=== PATIENT | female | born 1940 | race Caucasian/White ===

== ENCOUNTER → 2016-10-23 | Outpatient (CLI) | payer MEDICARE, BC | LOC: RAD 14:44 | PROVIDERS: ATTEND Family Medicine | DX: M25.562 Pain in left knee (principal); M25.462 Effusion, left knee ==

== ENCOUNTER → 2018-01-31 | Outpatient (CLI) | payer MEDICARE, BC ==
[2018-01-31 12:19] LABS: ABSOLUTE EOSINOPHILS # (AUTO) 0.2 10^3/uL (0.0-0.6); ABSOLUTE MONOCYTES (AUTO) 0.6 10^3/uL (0.1-1.4); ABSOLUTE NEUT (AUTO) 4.4 10^3/uL (1.7-8.2); BASOPHILS % (AUTO) 0.7 % (0-2); EOSINOPHILS % (AUTO) 2.8 % (0-6); HEMATOCRIT 39.6 % (36.0-47.0); HEMOGLOBIN 13.4 g/dL (12.0-15.5); LYMPHOCYTES % (AUTO) 15.6 % (13-45); MEAN CORPUSCULAR HEMOGLOBIN 32.4 pg (27.0-33.4); MEAN CORPUSCULAR HGB CONC 33.8 g/dL (32.0-36.0); MEAN CORPUSCULAR VOLUME 96 fl (80-97); MONOCYTES % (AUTO) 9.4 % (3-13); PLATELET COUNT 218 10^3/uL (150-450); RED BLOOD COUNT 4.13 10^6/uL (3.72-5.28); RED CELL DISTRIBUTION WIDTH 14.6 % (11.5-14.0); SEGMENTED NEUTROPHILS % (AUTO) 71.5 % (42-78); TOTAL CELLS COUNTED % (AUTO) 100 %; WHITE BLOOD COUNT 6.1 10^3/uL (4.0-10.5)
[2018-01-31 12:49] LABS: ALANINE AMINOTRANSFERASE 25 U/L (9-52); ALBUMIN 4.1 g/dL (3.5-5.0); ALKALINE PHOSPHATASE 69 U/L (38-126); ANION GAP 13 (5-19); ASPARTATE AMINO TRANSFERASE 23 U/L (14-36); BILIRUBIN,DIRECT 0.4 mg/dL (0.0-0.4); BLOOD UREA NITROGEN 30 mg/dL (7-20); CALCIUM 9.6 mg/dL (8.4-10.2); CARBON DIOXIDE 31 mmol/L (22-30); CHLORIDE 102 mmol/L (98-107); GLUCOSE 109 mg/dL (75-110); POTASSIUM 4.9 mmol/L (3.6-5.0); SODIUM 145.6 mmol/L (137-145); TOTAL PROTEIN 6.9 g/dL (6.3-8.2)
== END ==
LOC: OD 11:24
PROVIDERS: ATTEND Internal Medicine
DX: K58.0 Irritable bowel syndrome with diarrhea (principal); R53.83 Other fatigue; M19.90 Unspecified osteoarthritis, unspecified site
CPT/HCPCS: 36415; 80053; 84443; 85025

== ENCOUNTER → 2018-09-13 | Outpatient (CLI) | payer MEDICARE, BC ==
[2018-09-13 10:48] LABS: ABSOLUTE LYMPHOCYTES (AUTO) 0.4 10^3/uL (0.5-4.7); ABSOLUTE MONOCYTES (AUTO) 0.5 10^3/uL (0.1-1.4); ABSOLUTE NEUT (AUTO) 2.4 10^3/uL (1.7-8.2); BASOPHILS % (AUTO) 0.4 % (0-2); EOSINOPHILS % (AUTO) 0.1 % (0-6); HEMATOCRIT 36.6 % (36.0-47.0); LYMPHOCYTES % (AUTO) 10.8 % (13-45); MEAN CORPUSCULAR HEMOGLOBIN 33.6 pg (27.0-33.4); MEAN CORPUSCULAR HGB CONC 35.3 g/dL (32.0-36.0); MEAN CORPUSCULAR VOLUME 95 fl (80-97); MONOCYTES % (AUTO) 15.2 % (3-13); PLATELET COUNT 110 10^3/uL (150-450); RED BLOOD COUNT 3.86 10^6/uL (3.72-5.28); RED CELL DISTRIBUTION WIDTH 13.9 % (11.5-14.0); SEGMENTED NEUTROPHILS % (AUTO) 73.5 % (42-78); TOTAL CELLS COUNTED % (AUTO) 100 %; WHITE BLOOD COUNT 3.3 10^3/uL (4.0-10.5)
[2018-09-13 11:14] LABS: ALANINE AMINOTRANSFERASE 34 U/L (9-52); ALBUMIN 3.5 g/dL (3.5-5.0); ALKALINE PHOSPHATASE 68 U/L (38-126); ANION GAP 11 (5-19); ASPARTATE AMINO TRANSFERASE 55 U/L (14-36); BILIRUBIN,DIRECT 0.3 mg/dL (0.0-0.4); BILIRUBIN,TOTAL 0.8 mg/dL (0.2-1.3); BLOOD UREA NITROGEN 15 mg/dL (7-20); CALCIUM 9.2 mg/dL (8.4-10.2); CARBON DIOXIDE 31 mmol/L (22-30); CHLORIDE 97 mmol/L (98-107); GLUCOSE 119 mg/dL (75-110); SODIUM 138.6 mmol/L (137-145); TOTAL PROTEIN 6.2 g/dL (6.3-8.2)
== END ==
LOC: OD 10:09
PROVIDERS: ATTEND Internal Medicine
DX: K57.32 Diverticulitis of large intestine without perforation or abscess without bleeding (principal); K57.30 Diverticulosis of large intestine without perforation or abscess without bleeding
CPT/HCPCS: 36415; 80053; 85025

== ENCOUNTER 2018-09-17 13:31 | Inpatient (IN) | payer MEDICARE, BC ==
[2018-09-17] MEDS ORDERED: NORMAL SALINE 1000 ML 1,000 ML IV PRN (14:46)
[2018-09-17 15:37] LABS: HEMATOCRIT 35.2 % (36.0-47.0); HEMOGLOBIN 12.1 g/dL (12.0-15.5); MEAN CORPUSCULAR HEMOGLOBIN 32.5 pg (27.0-33.4); MEAN CORPUSCULAR HGB CONC 34.3 g/dL (32.0-36.0); MEAN CORPUSCULAR VOLUME 95 fl (80-97); PLATELET COUNT 230 10^3/uL (150-450); RED BLOOD COUNT 3.71 10^6/uL (3.72-5.28); RED CELL DISTRIBUTION WIDTH 14.3 % (11.5-14.0); WHITE BLOOD COUNT 8.7 10^3/uL (4.0-10.5)
[2018-09-17 15:44] LABS: INTERNATIONAL RATION (INR) 1.04; PARTIAL THROMBOPLASTIN TIME 37.8 SEC (23.5-35.8); PROTHROMBIN TIME 14.1 SEC (11.4-15.4)
[2018-09-17 15:55] LABS: ALANINE AMINOTRANSFERASE 104 U/L (9-52); ALBUMIN 3.6 g/dL (3.5-5.0); ALKALINE PHOSPHATASE 77 U/L (38-126); ANION GAP 10 (5-19); ASPARTATE AMINO TRANSFERASE 77 U/L (14-36); BILIRUBIN,DIRECT 0.2 mg/dL (0.0-0.4); BILIRUBIN,TOTAL 0.9 mg/dL (0.2-1.3); BLOOD UREA NITROGEN 15 mg/dL (7-20); CALCIUM 9.1 mg/dL (8.4-10.2); CARBON DIOXIDE 28 mmol/L (22-30); CHLORIDE 98 mmol/L (98-107); GLUCOSE 108 mg/dL (75-110); POTASSIUM 3.6 mmol/L (3.6-5.0); SODIUM 136.2 mmol/L (137-145); TOTAL PROTEIN 6.1 g/dL (6.3-8.2)
[2018-09-17] MEDS ORDERED: DEXTROSE 40% GEL 15 GM TUBE PO PRN ×2 (16:04)
[2018-09-17] MEDS ORDERED: DEXTROSE 50%-WATER 25 GM/50 ML DISP.SYRIN IV PRN ×2 (16:04)
[2018-09-17] MEDS ORDERED: GLUCAGON,HUMAN RECOMB 1 MG INJ SUBCUT PRN (16:04)
[2018-09-17] MEDS ORDERED: ONDANSETRON 4 MG TAB.RAPDIS PO PRN (16:04)
--- NOTE | 2018-09-17 16:17 | PDOC H&P ---
History of Present Illness Admission Date/PCP: 09/17/18 13:31 JUSTA ALBA MD Patient complains of: Abdominal pain with profound diarrhea unable to keep the clear liquids or antibiotics down History of Present Illness: TOMMY CUI is a 77 year old female Past Medical History Cardiac Medical History: Reports: Hyperlipidema Denies: Coronary Artery Disease, Myocardial Infarction, Hypertension Pulmonary Medical History: Denies: Asthma, Bronchitis, Chronic Obstructive Pulmonary Disease (COPD), Pneumonia, Tuberculosis Neurological Medical History: Denies: Seizures GI Medical History: Denies: Hepatitis, Hiatal Hernia Musculoskeltal Medical History: Reports: Arthritis Hematology: Reports: Anemia - 20-40 YRS AGO Denies: Sickle Cell Disease Past Surgical History Past Surgical History: Reports: Appendectomy, Hysterectomy, Orthopedic Surgery - right knee replacement, Tonsillectomy Denies: Amputation, Mastectomy, Pacemaker Social History Information Source: Patient Lives with: Family Smoking Status: Never Smoker Frequency of Alcohol Use: None Hx Recreational Drug Use: No Hx Prescription Drug Abuse: No Family History Family History: Reviewed & Not Pertinent Parental Family History Reviewed: Yes Children Family History Reviewed: Yes Sibling(s) Family History Reviewed.: Yes Medication/Allergy Home Medications: Esomeprazole Mag Trihydrate [Nexium] 40 mg PO QAM 06/10/13 Trazodone HCl 200 mg PO QHS 09/10/18 Acyclovir [Zovirax 5% Ointment 30 gm] 1 applic TP Q8 MDD FILLED 09/11/18 FOR 14 DAYS 09/17/18 Lactobacillus Acidophilus [Probiotic] 1 each PO DAILY 09/17/18 Metronidazole [Flagyl 500 mg Tablet] 500 mg PO Q6 MDD FILLED 09/13/18 FOR 10 DAYS 09/17/18 Sulfamethoxazole/Trimethoprim [Septra-Ds 800-160 mg Tablet] 1 tab PO Q12 MDD FILLED 09/13/18 FOR 10 DAYS 09/17/18 Valacyclovir HCl [Valtrex 500 Mg Tablet] 500 mg PO QHS 09/17/18 Allergies/Adverse Reactions: No Known Allergies Allergy (Verified 01/09/14 10:46) Review of Systems All systems: as per PMH Physical Exam Vital Signs: Temp Pulse Resp BP Pulse Ox 98.9 F 87 17 133/53 H 96 09/17/18 15:07 09/17/18 15:07 09/17/18 15:07 09/17/18 15:07 09/17/18 15:07 Intake & Output 09/16/18 09/17/18 09/18/18 06:59 06:59 06:59 Weight 56 kg General appearance: PRESENT: severe distress Head exam: PRESENT: atraumatic Eye exam: PRESENT: conjunctival injection Mouth exam: PRESENT: dry mucosa Neck exam: ABSENT: carotid bruit, JVD Respiratory exam: PRESENT: clear to auscultation meng Cardiovascular exam: PRESENT: RRR, +S1, +S2 GI/Abdominal exam: PRESENT: tenderness. ABSENT: guarding Extremities exam: PRESENT: full ROM Musculoskeletal exam: PRESENT: ambulatory Neurological exam: PRESENT: alert, awake Results Laboratory Results: 09/17/18 15:06 09/17/18 15:06 09/17/18 09/17/18 15:06 15:06 WBC 8.7 RBC 3.71 L Hgb 12.1 Hct 35.2 L MCV 95 MCH 32.5 MCHC 34.3 RDW 14.3 H Plt Count 230 Sodium 136.2 L Potassium 3.6 Chloride 98 Carbon Dioxide 28 Anion Gap 10 BUN 15 Creatinine 0.73 Est GFR ( Amer) > 60 Est GFR (Non-Af Amer) > 60 Glucose 108 Calcium 9.1 Total Bilirubin 0.9 AST 77 H ALT 104 H Alkaline Phosphatase 77 Total Protein 6.1 L Albumin 3.6 Assessment & Plan - Diagnosis (1) Acute abdominal pain Is this a current diagnosis for this admission?: Yes Plan: Will place patient on n.p.o. Surgical consultation. CT of the abdomen and pelvis. IV fluids and pain medication (2) Diarrhea Qualifiers: Diarrhea type: unspecified type Qualified Code(s): R19.7 - Diarrhea, unspecified Is this a current diagnosis for this admission?: Yes Plan: We will place patient on n.p.o. status. Stool cultures (3) Acute diverticulitis Is this a current diagnosis for this admission?: Yes Plan: N.p.o. and IV antibiotics and pain management. (4) Irritable bowel syndrome Is this a current diagnosis for this admission?: Yes Plan: Continue current treatment
[2018-09-17 16:36] LABS: LIPASE 35.4 U/L (23-300)
--- NOTE | 2018-09-17 18:01 | PDOC CONSULTATION ---
Consultation Consult Date: 09/17/18 Consult reason:: abdominal pains History of Present Illness Admission Date/PCP: 09/17/18 13:31 JUSTA ALBA MD Patient complains of: abdominal pains History of Present Illness: TOMMY CUI is a 77 year old female who apparently has a history of irritable bowel syndrome c/o diarrhea with abdominal pains past 1-2 weeks getting worse past 2 days. Admits to having night sweats in past 2 weeks. Has some nausea but no vomiting. Claims she was diagnosed with acute diverticulitis in the past and treated medically. She is going today for CT scan of abd/pelvis Past Medical History Cardiac Medical History: Reports: Hyperlipidema Denies: Coronary Artery Disease, Myocardial Infarction, Hypertension Pulmonary Medical History: Denies: Asthma, Bronchitis, Chronic Obstructive Pulmonary Disease (COPD), Pneumonia, Tuberculosis Neurological Medical History: Denies: Seizures GI Medical History: Denies: Hepatitis, Hiatal Hernia Musculoskeltal Medical History: Reports: Arthritis Hematology: Reports: Anemia - 20-40 YRS AGO Denies: Sickle Cell Disease Past Surgical History Past Surgical History: Reports: Appendectomy, Hysterectomy, Orthopedic Surgery - right knee replacement, Tonsillectomy Denies: Amputation, Mastectomy, Pacemaker Social History Lives with: Family Smoking Status: Never Smoker Frequency of Alcohol Use: None Hx Recreational Drug Use: No Hx Prescription Drug Abuse: No Family History Family History: Reviewed & Not Pertinent Parental Family History Reviewed: Yes Children Family History Reviewed: No Sibling(s) Family History Reviewed.: No Medication/Allergy Home Medications: Esomeprazole Mag Trihydrate [Nexium] 40 mg PO QAM 06/10/13 Trazodone HCl 200 mg PO QHS 09/10/18 Acyclovir [Zovirax 5% Ointment 30 gm] 1 applic TP Q8 MDD FILLED 09/11/18 FOR 14 DAYS 09/17/18 Lactobacillus Acidophilus [Probiotic] 1 each PO DAILY 09/17/18 Metronidazole [Flagyl 500 mg Tablet] 500 mg PO Q6 MDD FILLED 09/13/18 FOR 10 DAYS 09/17/18 Sulfamethoxazole/Trimethoprim [Septra-Ds 800-160 mg Tablet] 1 tab PO Q12 MDD FILLED 09/13/18 FOR 10 DAYS 09/17/18 Valacyclovir HCl [Valtrex 500 Mg Tablet] 500 mg PO QHS 09/17/18 Allergies/Adverse Reactions: No Known Allergies Allergy (Verified 01/09/14 10:46) Review of Systems Constitutional: PRESENT: as per HPI Eyes: PRESENT: other - no visual/hearing changes Cardiovascular: PRESENT: other - no chest pains/cough Genitourinary: PRESENT: other - no dysuria Neurological: PRESENT: other - no seizures Physical Exam Vital Signs: Temp Pulse Resp BP Pulse Ox 98.6 F 83 16 130/66 H 97 09/17/18 16:21 09/17/18 16:21 09/17/18 16:21 09/17/18 16:21 09/17/18 16:21 Intake & Output 09/16/18 09/17/18 09/18/18 06:59 06:59 06:59 Weight 56 kg General appearance: PRESENT: mild distress Head exam: PRESENT: atraumatic Eye exam: PRESENT: conjunctiva pink Mouth exam: PRESENT: moist Neck exam: PRESENT: full ROM Respiratory exam: PRESENT: clear to auscultation meng Cardiovascular exam: PRESENT: RRR Pulses: PRESENT: normal radial pulses Vascular exam: PRESENT: normal capillary refill GI/Abdominal exam: PRESENT: soft, tenderness - both lower quadrants Extremities exam: PRESENT: full ROM Musculoskeletal exam: PRESENT: ambulatory Neurological exam: PRESENT: alert, oriented to person, oriented to place, oriented to time, oriented to situation Psychiatric exam: PRESENT: appropriate affect Skin exam: PRESENT: normal color, warm Results Laboratory Results: 09/17/18 15:06 09/17/18 15:06 09/17/18 09/17/18 09/17/18 15:06 15:06 15:06 WBC 8.7 RBC 3.71 L Hgb 12.1 Hct 35.2 L MCV 95 MCH 32.5 MCHC 34.3 RDW 14.3 H Plt Count 230 Sodium 136.2 L Potassium 3.6 Chloride 98 Carbon Dioxide 28 Anion Gap 10 BUN 15 Creatinine 0.73 Est GFR ( Amer) > 60 Est GFR (Non-Af Amer) > 60 Glucose 108 Calcium 9.1 Total Bilirubin 0.9 AST 77 H ALT 104 H Alkaline Phosphatase 77 Total Protein 6.1 L Albumin 3.6 Amylase 30 Lipase 35.4 Assessment & Plan - Diagnosis (1) Acute abdominal pain Is this a current diagnosis for this admission?: Yes (2) Acute diverticulitis Is this a current diagnosis for this admission?: Yes - Time Time Spent: 30 to 50 Minutes - Inpatient Certification Medical Necessity: Need For IV Fluids, Need for Pain Control, Need for IV Antibiotics, Risk of Complication if Not Cared For in Hospital - Plan Summary Plan Summary: Agree with CT scan abd/pelvis IV antibiotics depending on CT scan findings Bowel rest
[2018-09-17] MEDS: ENOXAPARIN SODIUM INJ 40 MG/0.4 ML DISP.SYRIN SUBCUT SCH (18:29)
[2018-09-17] MEDS: METRONIDAZOLE 500 MG/NS RTU 500 MG/100 ML RTUPB IV SCH (18:29)
[2018-09-17] MEDS: LANSOPRAZOLE 30 MG TAB.RAP.DR PO SCH (18:29)
--- NOTE | 2018-09-17 19:04 | RADIOLOGY REPORT (SQ) ---
EXAM DESCRIPTION: CT ABD/PELVIS WITH IV ORAL COMPLETED DATE/TIME: 09/17/2018 6:27 pm REASON FOR STUDY: acute diverticulitis K57.92 DVTRCLI OF INTEST, PART UNSP, W/O PERF OR ABSCESS W/O COMPARISON: 01/09/2014 TECHNIQUE: CT scan of the abdomen and pelvis performed using helical scanning technique with dynamic intravenous contrast injection. No oral contrast. Images reviewed with lung, soft tissue, and bone windows. Reconstructed coronal and sagittal MPR images reviewed. Delayed images for evaluation of the urinary system also acquired. All images stored on PACS. All CT scanners at this facility use dose modulation, iterative reconstruction, and/or weight based d osing when appropriate to reduce radiation dose to as low as reasonably achievable (ALARA). [facility]: Dose Right [facility]: CareDose [facility]: Dose Right [facility]: Teradose 4D [facility]: Shortcut Labs CONTRAST TYPE AND DOSE: contrast/concentration: Isovue 350.00 mg/ml; Total Contrast Delivered: 64.0 ml; Total Saline Delivered: 65.0 ml RENAL FUNCTION: BUN 15, creatinine 0.73 RADIATION DOSE: CT Rad equipment meets quality standard of care and radiation dose reduction techniq ues were employed. CTDIvol: 5.1 - 6.0 mGy. DLP: 569 mGy-cm.. LIMITATIONS: None. FINDINGS: LOWER CHEST: No significant findings. No nodules or infiltrates. LIVER: Normal size. No masses. No dilated ducts. SPLEEN: Normal size. No focal lesions. PANCREAS: No masses. No significant calcifications. No adjacent inflammation or peripancreatic fluid collections. Pancreatic duct not dilated. GALLBLADDER: No identified stones by CT criteria. No inflammatory changes to suggest cholecystitis. ADRENAL GLANDS: No significant masses or asymmetry. RIGHT KIDNEY AND URETER: No solid masses. No significant calcifications. No hydronephrosis or hyd roureter. LEFT KIDNEY AND URETER: There is a small left renal cyst. No solid masses. No significant calcific ations. No hydronephrosis or hydroureter. AORTA AND VESSELS: There is ectasia. No dissection. There is scattered calcified plaque. RETROPERITONEUM: No retroperitoneal adenopathy, hemorrhage or masses. BOWEL AND PERITONEAL CAVITY: Scattered air-fluid levels. No significant small or large bowel distent ion. Numerous sigmoid diverticuli. No significant peritoneal inflammation. There is very slight th ickening of the distal sigmoid colonic wall. APPENDIX: Not identified. PELVIS: No mass. No free fluid. Normal bladder. ABDOMINAL WALL: No masses. No hernias. BONES: There are degenerative changes in the lumbar spine. OTHER: No other significant finding. IMPRESSION: Fairly extensive diverticulosis involving the sigmoid colon. Focal bowel wall thickenin g is noted in the distal sigmoid. Mild diverticulitis cannot be excluded. No focal free air or flui d collections. TECHNICAL DOCUMENTATION: JOB ID: [id number] Quality ID # [id number]: Final reports with documentation of one or more dose reduction techniques (e.g., Au tomated exposure control, adjustment of the mA and/or kV according to patient size, use of iterative reconstruction technique) 2010 [employer]- All Rights Reserved Reading location - IP/workstation name: [email or web address]
[2018-09-17] MEDS: CIPROFLOXACIN 400 MG/D5W RTU 400 MG/200 ML RTUPB IV SCH (21:54)
[2018-09-18] MEDS: METRONIDAZOLE 500 MG/NS RTU 500 MG/100 ML RTUPB IV SCH ×4 (00:29→17:56)
[2018-09-18] MEDS: LANSOPRAZOLE 30 MG TAB.RAP.DR PO SCH ×2 (05:20→16:01)
[2018-09-18 06:42] LABS: ABSOLUTE EOSINOPHILS # (AUTO) 0.1 10^3/uL (0.0-0.6); ABSOLUTE LYMPHOCYTES (AUTO) 1.3 10^3/uL (0.5-4.7); ABSOLUTE MONOCYTES (AUTO) 1.2 10^3/uL (0.1-1.4); ABSOLUTE NEUT (AUTO) 5.1 10^3/uL (1.7-8.2); BASOPHILS % (AUTO) 0.3 % (0-2); EOSINOPHILS % (AUTO) 0.8 % (0-6); HEMATOCRIT 35.3 % (36.0-47.0); HEMOGLOBIN 11.9 g/dL (12.0-15.5); LYMPHOCYTES % (AUTO) 16.8 % (13-45); MEAN CORPUSCULAR HEMOGLOBIN 32.2 pg (27.0-33.4); MEAN CORPUSCULAR HGB CONC 33.8 g/dL (32.0-36.0); MEAN CORPUSCULAR VOLUME 95 fl (80-97); MONOCYTES % (AUTO) 15.9 % (3-13); PLATELET COUNT 228 10^3/uL (150-450); RED BLOOD COUNT 3.71 10^6/uL (3.72-5.28); SEGMENTED NEUTROPHILS % (AUTO) 66.2 % (42-78); TOTAL CELLS COUNTED % (AUTO) 100 %; WHITE BLOOD COUNT 7.6 10^3/uL (4.0-10.5)
[2018-09-18 06:56] LABS: ALANINE AMINOTRANSFERASE 82 U/L (9-52); ALBUMIN 3.4 g/dL (3.5-5.0); ALKALINE PHOSPHATASE 68 U/L (38-126); ANION GAP 9 (5-19); ASPARTATE AMINO TRANSFERASE 58 U/L (14-36); BILIRUBIN,DIRECT 0.5 mg/dL (0.0-0.4); BILIRUBIN,TOTAL 1.2 mg/dL (0.2-1.3); BLOOD UREA NITROGEN 13 mg/dL (7-20); CALCIUM 8.7 mg/dL (8.4-10.2); CARBON DIOXIDE 26 mmol/L (22-30); CHLORIDE 101 mmol/L (98-107); GLUCOSE 96 mg/dL (75-110); SODIUM 136.2 mmol/L (137-145); TOTAL PROTEIN 6.1 g/dL (6.3-8.2)
[2018-09-18] MEDS ORDERED: MORPHINE SULFATE 10 MG/ML INJ IV PRN (08:54)
--- NOTE | 2018-09-18 09:01 | PDOC PROGRESS REPORT ---
Subjective Progress Note for:: 09/18/18 Subjective:: The patient states to feel slightly better. She is still having a lot of abdominal pain and diarrhea. Reason For Visit: ACUTE ABDOMINAL PAIN,ACUTE DIVERTICULITIS Physical Exam Vital Signs: Temp Pulse Resp BP Pulse Ox 98.5 F 84 17 135/54 H 95 09/18/18 00:02 09/18/18 00:02 09/18/18 00:02 09/18/18 00:02 09/18/18 00:02 Intake & Output 09/17/18 09/18/18 09/19/18 06:59 06:59 06:59 Intake Total 400 100 Balance 400 100 Weight 56 kg General appearance: PRESENT: mild distress Head exam: PRESENT: atraumatic Eye exam: PRESENT: conjunctival injection Mouth exam: PRESENT: dry mucosa Neck exam: ABSENT: carotid bruit, JVD Respiratory exam: PRESENT: clear to auscultation meng Cardiovascular exam: PRESENT: RRR, +S1, +S2 GI/Abdominal exam: PRESENT: soft, tenderness. ABSENT: guarding Extremities exam: PRESENT: full ROM Musculoskeletal exam: PRESENT: ambulatory Results Laboratory Results: 09/18/18 05:40 09/18/18 05:40 09/17/18 09/17/18 09/17/18 15:06 15:06 15:06 WBC 8.7 RBC 3.71 L Hgb 12.1 Hct 35.2 L MCV 95 MCH 32.5 MCHC 34.3 RDW 14.3 H Plt Count 230 Seg Neutrophils % Lymphocytes % Monocytes % Eosinophils % Basophils % Absolute Neutrophils Absolute Lymphocytes Absolute Monocytes Absolute Eosinophils Absolute Basophils Sodium 136.2 L Potassium 3.6 Chloride 98 Carbon Dioxide 28 Anion Gap 10 BUN 15 Creatinine 0.73 Est GFR ( Amer) > 60 Est GFR (Non-Af Amer) > 60 Glucose 108 Calcium 9.1 Magnesium Total Bilirubin 0.9 AST 77 H ALT 104 H Alkaline Phosphatase 77 Total Protein 6.1 L Albumin 3.6 Amylase 30 Lipase 35.4 TSH 09/18/18 09/18/18 09/18/18 05:40 05:40 05:40 WBC 7.6 RBC 3.71 L Hgb 11.9 L Hct 35.3 L MCV 95 MCH 32.2 MCHC 33.8 RDW 14.0 Plt Count 228 Seg Neutrophils % 66.2 Lymphocytes % 16.8 Monocytes % 15.9 H Eosinophils % 0.8 Basophils % 0.3 Absolute Neutrophils 5.1 Absolute Lymphocytes 1.3 Absolute Monocytes 1.2 Absolute Eosinophils 0.1 Absolute Basophils 0.0 Sodium 136.2 L Potassium 4.0 Chloride 101 Carbon Dioxide 26 Anion Gap 9 BUN 13 Creatinine 0.63 Est GFR ( Amer) > 60 Est GFR (Non-Af Amer) > 60 Glucose 96 Calcium 8.7 Magnesium 2.0 Total Bilirubin 1.2 AST 58 H ALT 82 H Alkaline Phosphatase 68 Total Protein 6.1 L Albumin 3.4 L Amylase Lipase TSH 1.13 Impressions: Abdomen/Pelvis CT 09/17/18 00:00 IMPRESSION: Fairly extensive diverticulosis involving the sigmoid colon. Focal bowel wall thickening is noted in the distal sigmoid. Mild diverticulitis cannot be excluded. No focal free air or fluid collections. Assessment & Plan - Diagnosis (1) Acute abdominal pain Is this a current diagnosis for this admission?: Yes Plan: Will place patient on n.p.o. Surgical consultation. CT of the abdomen and pelvis. IV fluids and pain medication (2) Diarrhea Qualifiers: Diarrhea type: unspecified type Qualified Code(s): R19.7 - Diarrhea, unspecified Is this a current diagnosis for this admission?: Yes (3) Acute diverticulitis Is this a current diagnosis for this admission?: Yes Plan: CT of the abdomen and pelvis showed diverticulosis and diverticulitis. We will continue n.p.o. and add some morphine for pain and possibly slow down the diarrhea (4) Irritable bowel syndrome Is this a current diagnosis for this admission?: Yes Plan: Continue current treatment
[2018-09-18] MEDS: NORMAL SALINE 1000 ML 1,000 ML IV PRN ×2 (09:30→21:14)
[2018-09-18] MEDS: ENOXAPARIN SODIUM INJ 40 MG/0.4 ML DISP.SYRIN SUBCUT SCH (09:34)
[2018-09-18] MEDS: CIPROFLOXACIN 400 MG/D5W RTU 400 MG/200 ML RTUPB IV SCH ×2 (10:05→22:06)
[2018-09-18] MEDS: ACETAMINOPHEN 325 MG TABLET PO PRN (10:51)
[2018-09-18] MEDS ORDERED: HYDROMORPHONE HCL INJ/PF 2 MG/ML AMPULE IV PRN (13:19)
[2018-09-18] MEDS: ONDANSETRON HCL INJ/PF 4 MG/2 ML SDV IV PRN ×3 (13:41→22:06)
--- NOTE | 2018-09-18 15:33 | RADIOLOGY REPORT (SQ) ---
EXAM DESCRIPTION: ABDOMEN 2 VIEWS COMPLETED DATE/TIME: 09/18/2018 3:12 pm REASON FOR STUDY: flat and upright. Re: nausea, vomiting, diarrhea K57.92 DVTRCLI OF INTEST, PART U NSP, W/O PERF OR ABSCESS W/O COMPARISON: None. NUMBER OF VIEWS: Two views. TECHNIQUE: Supine and erect/decubitus radiographic images of the abdomen acquired. LIMITATIONS: None. FINDINGS: FREE AIR: None. No abnormal gas collections. LUNG BASES: Clear. BOWEL GAS PATTERN: Nonobstructive pattern. No dilated loops or air fluid levels. There is some resid ual oral contrast in the colon from the patient's recent abdominal CT scan CALCIFICATIONS: No suspicious calcifications. SOFT TISSUES: No gross mass or suggestion of organomegaly. HARDWARE: None in the abdomen. BONES: No acute fracture. No worrisome bone lesions. OTHER: No other significant finding. IMPRESSION: NO RADIOGRAPHIC EVIDENCE FOR ACUTE ABDOMINAL DISEASE. TECHNICAL DOCUMENTATION: JOB ID: [id number] [employer]- All Rights Reserved Reading location - IP/workstation name: [email or web address]
[2018-09-18] MEDS ORDERED: PROMETHAZINE HCL INJ 25 MG/1 ML VIAL IV PRN (20:00)
[2018-09-18] MEDS ORDERED: LORAZEPAM INJ 2 MG/1 ML VIAL IV PRN (20:43)
--- NOTE | 2018-09-18 21:45 | PDOC PROGRESS REPORT ---
Subjective Progress Note for:: 09/18/18 Subjective:: 77-year-old female with a history of functional abdominal pain, nausea, and vomiting. The patient reports cramping abdominal pain and nausea, worse after the administration of morphine this morning. Patient reports that she has a history of Crohn's disease, but does not require treatment for it. The patient has had multiple loose bowel movements today. She denies any melena, hematochezia, hematemesis, chest pain, shortness of breath, headache, blurry vision. Reason For Visit: ACUTE ABDOMINAL PAIN,ACUTE DIVERTICULITIS Physical Exam Vital Signs: Temp Pulse Resp BP Pulse Ox 97.8 F 83 16 149/63 H 95 09/18/18 20:00 09/18/18 20:00 09/18/18 20:00 09/18/18 20:00 09/18/18 20:00 Intake & Output 09/17/18 09/18/18 09/19/18 06:59 06:59 06:59 Intake Total 400 1400 Output Total 100 Balance 400 1300 Weight 56 kg General appearance: PRESENT: no acute distress Head exam: PRESENT: atraumatic, normocephalic Eye exam: PRESENT: EOMI, PERRLA Mouth exam: PRESENT: neck supple Respiratory exam: PRESENT: unlabored. ABSENT: chest wall tenderness, tachypnea Pulses: PRESENT: normal radial pulses Vascular exam: PRESENT: normal capillary refill. ABSENT: pallor GI/Abdominal exam: PRESENT: soft. ABSENT: distended, firm, guarding, rebound, tenderness Extremities exam: ABSENT: clubbing Musculoskeletal exam: ABSENT: deformity Neurological exam: PRESENT: alert, awake, oriented to person, oriented to place , oriented to time, oriented to situation, CN II-XII grossly intact Psychiatric exam: PRESENT: anxious. ABSENT: agitated, depressed Focused psych exam: ABSENT: delusional Skin exam: ABSENT: cyanosis, erythema, jaundice Results Laboratory Results: 09/18/18 05:40 09/18/18 05:40 09/18/18 09/18/18 09/18/18 05:40 05:40 05:40 WBC 7.6 RBC 3.71 L Hgb 11.9 L Hct 35.3 L MCV 95 MCH 32.2 MCHC 33.8 RDW 14.0 Plt Count 228 Seg Neutrophils % 66.2 Lymphocytes % 16.8 Monocytes % 15.9 H Eosinophils % 0.8 Basophils % 0.3 Absolute Neutrophils 5.1 Absolute Lymphocytes 1.3 Absolute Monocytes 1.2 Absolute Eosinophils 0.1 Absolute Basophils 0.0 Sodium 136.2 L Potassium 4.0 Chloride 101 Carbon Dioxide 26 Anion Gap 9 BUN 13 Creatinine 0.63 Est GFR ( Amer) > 60 Est GFR (Non-Af Amer) > 60 Glucose 96 Calcium 8.7 Magnesium 2.0 Total Bilirubin 1.2 AST 58 H ALT 82 H Alkaline Phosphatase 68 Total Protein 6.1 L Albumin 3.4 L TSH 1.13 Impressions: Abdomen/Pelvis CT 09/17/18 00:00 IMPRESSION: Fairly extensive diverticulosis involving the sigmoid colon. Focal bowel wall thickening is noted in the distal sigmoid. Mild diverticulitis cannot be excluded. No focal free air or fluid collections. Abdomen X-Ray 09/18/18 00:00 IMPRESSION: NO RADIOGRAPHIC EVIDENCE FOR ACUTE ABDOMINAL DISEASE. Assessment & Plan - Diagnosis (1) Abdominal pain Qualifiers: Abdominal location: generalized Qualified Code(s): R10.84 - Generalized abdominal pain Is this a current diagnosis for this admission?: Yes (2) Nausea and vomiting Qualifiers: Vomiting type: bilious vomiting Qualified Code(s): R11.14 - Bilious vomiting Is this a current diagnosis for this admission?: Yes - Plan Summary Plan Summary: This is a 77-year-old female with abdominal pain nausea and vomiting. The patient reports a history of Crohn's disease, however she has not required medical treatment for it in the past. Today, she reports significant nausea and vomiting. The patient is not receiving relief with Zofran. I will add Phenergan to her medication regimen. I have reviewed the patient's recent CT scan. I do not see any obvious/significant inflammation of the small or large intestine. Contrast moved freely through the small bowel and into the colon. I have reviewed the patient's flat and upright films today. She has no sign of obstruction. The patient's nausea and vomiting does not appear to be related to eating. However with abdominal pain and persistent nausea, a gallbladder workup would be prudent. I will obtain a right upper quadrant ultrasound to identify any potential gallstones. At this time I cannot identify any need for urgent surgical intervention. Continue with supportive care. Consider treatment for Crohn's disease (if the patient has been diagnosed with Crohn's in the past). Will follow.
[2018-09-19] MEDS: METRONIDAZOLE 500 MG/NS RTU 500 MG/100 ML RTUPB IV SCH ×4 (00:38→17:54)
[2018-09-19] MEDS: LANSOPRAZOLE 30 MG TAB.RAP.DR PO SCH ×2 (06:40→17:57)
[2018-09-19] MEDS ORDERED: LORAZEPAM 0.5 MG TABLET PO PRN (09:30)
[2018-09-19] MEDS: CIPROFLOXACIN 400 MG/D5W RTU 400 MG/200 ML RTUPB IV SCH ×2 (10:40→22:57)
[2018-09-19] MEDS: ENOXAPARIN SODIUM INJ 40 MG/0.4 ML DISP.SYRIN SUBCUT SCH (10:40)
--- NOTE | 2018-09-19 10:45 | RADIOLOGY REPORT (SQ) ---
EXAM DESCRIPTION: U/S ABDOMEN LIMITED W/O DOP COMPLETED DATE/TIME: 09/19/2018 10:33 am REASON FOR STUDY: persistent nausea K57.92 DVTRCLI OF INTEST, PART UNSP, W/O PERF OR ABSCESS W/O COMPARISON: None. TECHNIQUE: Dynamic and static grayscale images acquired of the abdomen and recorded on PACS. Additio nal selected color Doppler and spectral images recorded. LIMITATIONS: Limited visualization. Poor acoustical window FINDINGS: PANCREAS: Limited visualization. no masses seen LIVER: Normal size Mild fatty infiltration. No focal masses. LIVER VASCULATURE: Normal directional flow of the main portal vein and hepatic veins. GALLBLADDER: No stones. Normal wall thickness. No pericholecystic fluid. ULTRASOUND-DETECTED PEREZ'S SIGN: Negative. INTRAHEPATIC DUCTS AND COMMON DUCT: CBD and intrahepatic ducts normal caliber. No filling defects. INFERIOR VENA CAVA: Normal flow. AORTA: No aneurysm. RIGHT KIDNEY: Normal size. Normal echogenicity. No solid or suspicious masses. No hydronephros is. No calcifications. PERITONEAL AND RIGHT PLEURAL SPACE: No ascites or effusions. OTHER: No other significant findings. IMPRESSION: FATTY LIVER. OTHERWISE NORMAL RUQ US VISUALIZED TECHNICAL DOCUMENTATION: JOB ID: [id number] [employer]- All Rights Reserved Reading location - IP/workstation name: [email or web address]
--- NOTE | 2018-09-19 17:02 | PDOC PROGRESS REPORT ---
Subjective Progress Note for:: 09/19/18 Subjective:: The patient states to feel much better. She denies any further vomiting. She did have a good small bowel movement no more diarrhea. She did not like to wait lorazepam IV made her feel. She apparently had some hallucinations. She has taking it by mouth in the past. She did have some good rest and once to eat because she is hungry Reason For Visit: ACUTE ABDOMINAL PAIN,ACUTE DIVERTICULITIS Physical Exam Vital Signs: Temp Pulse Resp BP Pulse Ox 98.1 F 81 16 134/71 H 98 09/19/18 16:00 09/19/18 16:00 09/19/18 16:00 09/19/18 16:00 09/19/18 16:00 Intake & Output 09/18/18 09/19/18 09/20/18 06:59 06:59 06:59 Intake Total 400 1800 100 Output Total 100 Balance 400 1700 100 Weight 56 kg General appearance: PRESENT: mild distress Head exam: PRESENT: atraumatic Eye exam: PRESENT: conjunctiva pink Neck exam: ABSENT: carotid bruit, JVD Respiratory exam: PRESENT: clear to auscultation meng Cardiovascular exam: PRESENT: RRR, +S1, +S2 GI/Abdominal exam: PRESENT: soft, tenderness. ABSENT: guarding, rebound Extremities exam: PRESENT: full ROM Musculoskeletal exam: PRESENT: ambulatory Neurological exam: PRESENT: alert, awake, oriented to person, oriented to place , oriented to time Results Laboratory Results: 09/18/18 05:40 09/18/18 05:40 Impressions: Abdomen/Pelvis CT 09/17/18 00:00 IMPRESSION: Fairly extensive diverticulosis involving the sigmoid colon. Focal bowel wall thickening is noted in the distal sigmoid. Mild diverticulitis cannot be excluded. No focal free air or fluid collections. Abdomen X-Ray 09/18/18 00:00 IMPRESSION: NO RADIOGRAPHIC EVIDENCE FOR ACUTE ABDOMINAL DISEASE. Abdomen Ultrasound 09/19/18 00:00 IMPRESSION: FATTY LIVER. OTHERWISE NORMAL RUQ US VISUALIZED Assessment & Plan - Diagnosis (1) Acute abdominal pain Is this a current diagnosis for this admission?: Yes (2) Diarrhea Qualifiers: Diarrhea type: unspecified type Qualified Code(s): R19.7 - Diarrhea, unspecified Is this a current diagnosis for this admission?: Yes (3) Acute diverticulitis Is this a current diagnosis for this admission?: Yes Plan: CT of the abdomen and pelvis showed diverticulosis and diverticulitis. We will continue n.p.o. and add some morphine for pain and possibly slow down the diarrhea (4) Irritable bowel syndrome Is this a current diagnosis for this admission?: Yes Plan: Continue current treatment (5) Crohn's colitis Is this a current diagnosis for this admission?: Yes Plan: History of Crohn's colitis with surgical resections of the fistulas
[2018-09-19] MEDS: ACETAMINOPHEN 325 MG TABLET PO PRN (18:00)
[2018-09-20] MEDS: ONDANSETRON HCL INJ/PF 4 MG/2 ML SDV IV PRN (00:52)
[2018-09-20] MEDS: METRONIDAZOLE 500 MG/NS RTU 500 MG/100 ML RTUPB IV SCH ×2 (00:52→06:27)
[2018-09-20] MEDS: LANSOPRAZOLE 30 MG TAB.RAP.DR PO SCH (06:28)
--- NOTE | 2018-09-20 09:55 | PDOC DISCHARGE SUMMARY ---
General - Admit/Disc Date/PCP Admission Date/Primary Care Provider: 09/17/18 13:31 JUSTA ALBA MD Discharge Date: 09/20/18 - Discharge Diagnosis (1) Acute abdominal pain Is this a current diagnosis for this admission?: Yes (2) Diarrhea Is this a current diagnosis for this admission?: Yes (3) Acute diverticulitis Is this a current diagnosis for this admission?: Yes Summary: Symptoms have resolved. Continue advancing diet and continue antibiotics (4) Irritable bowel syndrome Is this a current diagnosis for this admission?: Yes Summary: Continue current treatment (5) Crohn's colitis Is this a current diagnosis for this admission?: Yes Summary: Will need follow-up with gastroenterology - Additional Information Discharge Diet: Full Liquids Discharge Activity: Activity As Tolerated Home Medications: Esomeprazole Mag Trihydrate [Nexium] 40 mg PO QAM 06/10/13 Trazodone HCl 200 mg PO QHS 09/10/18 Acyclovir [Zovirax 5% Ointment] 1 applic TP Q8 MDD FILLED 09/11/18 FOR 14 DAYS Lactobacillus Acidophilus [Probiotic] 1 each PO DAILY 09/17/18 Metronidazole [Flagyl 500 mg Tablet] 500 mg PO Q6 MDD FILLED 09/13/18 FOR 10 DAYS 09/17/18 Sulfamethoxazole/Trimethoprim [Septra-Ds 800-160 mg Tablet] 1 tab PO Q12 MDD FILLED 09/13/18 FOR 10 DAYS 09/17/18 Valacyclovir HCl [Valtrex 500 mg Tablet] 500 mg PO QHS 09/17/18 History of Present Illness History of Present Illness: TOMMY CUI is a 77 year old female Hospital Course Hospital Course: The patient did well after the admission. She has received IV fluid she was placed on n.p.o. and received antibiotics. Her symptomatology has improved over the next couple of days. She had a gallbladder ultrasound which was negative she was seen by the surgery did not recommend any interventions. She tolerated clear liquids well and wanted to go home. On the day of discharge she appeared comfortable in no acute distress Physical Exam Vital Signs: Temp Pulse Resp BP Pulse Ox 97.8 F 81 18 142/66 H 96 09/20/18 07:58 09/20/18 07:58 09/20/18 07:58 09/20/18 07:58 09/20/18 07:58 Intake & Output 09/19/18 09/20/18 09/21/18 06:59 06:59 06:59 Intake Total 1800 600 200 Output Total 100 Balance 1700 600 200 Weight 56.6 kg General appearance: PRESENT: no acute distress Head exam: PRESENT: atraumatic Eye exam: PRESENT: conjunctiva pink Neck exam: ABSENT: carotid bruit, JVD Respiratory exam: PRESENT: clear to auscultation meng Cardiovascular exam: PRESENT: RRR, +S1, +S2 GI/Abdominal exam: PRESENT: normal bowel sounds, soft Extremities exam: PRESENT: full ROM Musculoskeletal exam: PRESENT: ambulatory Results Laboratory Results: 09/18/18 05:40 09/18/18 05:40 Impressions: Abdomen/Pelvis CT 09/17/18 00:00 IMPRESSION: Fairly extensive diverticulosis involving the sigmoid colon. Focal bowel wall thickening is noted in the distal sigmoid. Mild diverticulitis cannot be excluded. No focal free air or fluid collections. Abdomen X-Ray 09/18/18 00:00 IMPRESSION: NO RADIOGRAPHIC EVIDENCE FOR ACUTE ABDOMINAL DISEASE. Abdomen Ultrasound 09/19/18 00:00 IMPRESSION: FATTY LIVER. OTHERWISE NORMAL RUQ US VISUALIZED Qualifiers - * PATIENT BEING DISCHARGED WITH ANY OF THE FOLLOWING DIAGNOSIS: No
[2018-09-20 10:12] VITALS: BP 134/71
== END 2018-09-20 10:53 | disposition home or self-care (01) | DRG 392 ==
LOC: 5 13:31 → 2N 09-18 05:52 → 5 09-18 06:07 → 2N 09-18 06:13
PROVIDERS: ADMIT Internal Medicine; ATTEND Internal Medicine
DX: K57.92 Diverticulitis of intestine, part unspecified, without perforation or abscess without bleeding (principal); K50.90 Crohn's disease, unspecified, without complications; K57.32 Diverticulitis of large intestine without perforation or abscess without bleeding; K58.9 Irritable bowel syndrome, unspecified; R19.7 Diarrhea, unspecified
CPT/HCPCS: 36415; 74019; 74177; 76705; 80053; 82150; 83690; 83735; 84443; 85025; 85027; 85610; 85730; J0744; J2060; J2270; J2405; J3490; J7030; S0119

== ENCOUNTER → 2018-12-16 | Outpatient (CLI) | payer MEDICARE, BC ==
[2018-12-16 16:28] LABS: ABSOLUTE EOSINOPHILS # (AUTO) 0.1 10^3/uL (0.0-0.6); ABSOLUTE LYMPHOCYTES (AUTO) 1.4 10^3/uL (0.5-4.7); ABSOLUTE MONOCYTES (AUTO) 0.6 10^3/uL (0.1-1.4); ABSOLUTE NEUT (AUTO) 4.3 10^3/uL (1.7-8.2); BASOPHILS % (AUTO) 0.5 % (0-2); EOSINOPHILS % (AUTO) 2.1 % (0-6); HEMATOCRIT 39.9 % (36.0-47.0); HEMOGLOBIN 13.3 g/dL (12.0-15.5); LYMPHOCYTES % (AUTO) 21.6 % (13-45); MEAN CORPUSCULAR HEMOGLOBIN 33.1 pg (27.0-33.4); MEAN CORPUSCULAR HGB CONC 33.3 g/dL (32.0-36.0); MEAN CORPUSCULAR VOLUME 99 fl (80-97); MONOCYTES % (AUTO) 9.3 % (3-13); PLATELET COUNT 211 10^3/uL (150-450); RED BLOOD COUNT 4.02 10^6/uL (3.72-5.28); RED CELL DISTRIBUTION WIDTH 15.9 % (11.5-14.0); SEGMENTED NEUTROPHILS % (AUTO) 66.5 % (42-78); TOTAL CELLS COUNTED % (AUTO) 100 %; WHITE BLOOD COUNT 6.5 10^3/uL (4.0-10.5)
[2018-12-16 16:51] LABS: ALANINE AMINOTRANSFERASE 16 U/L (9-52); ALBUMIN 4.4 g/dL (3.5-5.0); ALKALINE PHOSPHATASE 67 U/L (38-126); ANION GAP 11 (5-19); ASPARTATE AMINO TRANSFERASE 21 U/L (14-36); BILIRUBIN,DIRECT 0.3 mg/dL (0.0-0.4); BILIRUBIN,TOTAL 0.7 mg/dL (0.2-1.3); BLOOD UREA NITROGEN 27 mg/dL (7-20); CALCIUM 9.9 mg/dL (8.4-10.2); CARBON DIOXIDE 25 mmol/L (22-30); CHLORIDE 104 mmol/L (98-107); GLUCOSE 96 mg/dL (75-110); POTASSIUM 4.2 mmol/L (3.6-5.0); SODIUM 140.1 mmol/L (137-145); TOTAL PROTEIN 6.9 g/dL (6.3-8.2)
== END ==
LOC: OD 15:05
PROVIDERS: ATTEND Orthopaedic Surgery Sports Medicine
DX: K58.9 Irritable bowel syndrome, unspecified (principal); M81.8 Other osteoporosis without current pathological fracture; Z11.2 Encounter for screening for other bacterial diseases
CPT/HCPCS: 36415; 80053; 85025; 87070